=== PATIENT | male | born 1960 | race African-American/Black ===

== ENCOUNTER 2019-06-16 06:58 | Emergency (ER) | payer OTHER ==
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
[2019-06-16] MEDS ORDERED: LIDOCAINE 5% (700 MG) TRANSDERMAL ADH..PATCH TP SCH ×2 (09:00→10:00)
[2019-06-16 09:15] VITALS: BP 145/86
== END 2019-06-16 09:17 | disposition home or self-care (01) ==
LOC: ER 06:58
DX: S39.012A Strain of muscle, fascia and tendon of lower back, initial encounter (principal); V49.40XA Driver injured in collision with unspecified motor vehicles in traffic accident, initial encounter; Y93.89 Activity, other specified; I10 Essential (primary) hypertension
CPT/HCPCS: 72110; 99283